=== PATIENT | male | born 1975 | race African-American/Black ===

== ENCOUNTER 2018-07-04 04:22 | Emergency (ER) | payer BC ==
[~2018-07-04] VITALS: Ht 185.4 cm; Wt 96.2 kg
[2018-07-04 04:33] VITALS: BP 144/85
[2018-07-04] MEDS ORDERED: PHENAZOPYRIDINE HCL 200 MG TABLET ONE (05:19)
[2018-07-04] MEDS ORDERED: PHENAZOPYRIDINE HCL 200 MG TABLET PO ONE (05:30)
--- NOTE | 2018-07-04 06:16 | NUR ---
URINE COLLECTED AND SENT TO LAB
[2018-07-04 06:36] LABS: APPEARANCE,URINE CLEAR (CLEAR); BILIRUBIN,URINE NEGATIVE (NEGATIVE); BLOOD, URINE NEGATIVE Ery/uL (NEGATIVE); KETONES,URINE NEGATIVE (NEGATIVE); LEUKOCYTE ESTERASE ,URINE NEGATIVE (NEGATIVE); NITRITE, URINE POSITIVE (NEGATIVE); PROTEIN,URINE TRACE mg/dl (NEGATIVE); UGLUCOSE NEGATIVE (NEGATIVE); UROBILINOGEN,URINE 0.2 EU/dL (0.2)
[2018-07-04 06:39] LABS: COLOR,URINE DARK YELLOW (YELLOW)
[2018-07-04 06:45] LABS: BACTERIA,URINE Few /HPF (None Seen); RBC,URINE 0-2 /HPF (0-2); SPERM,URINE Rare /HPF (None Seen); SQUAMOUS EPITHELIAL CELL,UR Rare /HPF (None Seen)
[2018-07-04] MEDS ORDERED: CIPROFLOXACIN HCL 500 MG TABLET ONE (07:09)
--- NOTE | 2018-07-04 07:14 | NUR ---
Patient discharged to home in stable condition. Written and verbal after care instructions given. Patient verbalizes understanding of instruction.
[2018-07-04] MEDS ORDERED: CIPROFLOXACIN HCL 250 MG TABLET PO ONE (07:30)
== END 2018-07-04 07:14 | disposition home or self-care (01) ==
LOC: ER 04:24
DX: N34.2 Other urethritis (principal); Z60.2 Problems related to living alone
CPT/HCPCS: 81000-TC; 87086-TC; 87491; 87591